=== PATIENT | female | born 1995 | race Hispanic/Latino ===

== ENCOUNTER 2017-08-04 16:28 | Emergency (ER) | payer MEDICAID, SELFPAY ==
[2017-08-04 18:23] LABS: #Basophils 0.1 thou/uL (0.0-0.2); #Eosinphils 0.1 thou/uL (0.0-0.7); #Lymphocytes 2.2 thou/uL (1.20-3.40); #Monocytes 0.6 thou/uL (0.11-0.59); %Basophils 0.8 % (0.0-1.0); %Eosinophils 0.7 % (0.0-10.0); %Lymphocytes 20.1 % (28.0-48.0); %Neutrophils 73.3 % (31.0-61.0); Hemoglobin 13.7 g/dL (12.0-16.0); Mean Corpuscular HGB CONC 34.2 g/dL (32.0-36.0); Mean Corpuscular Hemoglobin 29.8 pg (25.0-35.0); Mean Corpuscular Volume 87.3 fl (77.0-87.0); Mean Platelet Volume 8.8 fL (7.4-10.4); Platelet Count 258 thou/uL (130-400); RBC Distribution Width 12.7 % (11.5-14.5)
[2017-08-04 18:27] LABS: Bilirubin Negative (Negative); Blood, Urine Large (Negative); Clarity CLOUDY (Clear); Glucose, Urine (Dipstick) Negative (Negative); Leukocyte Small (Negative); Nitrite Negative (Negative); Protein, Urine (Dipstick) Trace mg/dL (Neg-Trace); Specific Gravity, Urine 1.017 (1.002-1.036); pH, Urine 7.5 (5.0-9.0)
[2017-08-04 18:29] LABS: Bacteria/HPF 1+ HPF (None Seen); Hyaline Casts/LPF 0-3 HYALINE CAST LPF (0-3 Hyaline)
[2017-08-04 18:35] LABS: Pregnancy Test - Urine (BHCG) POSITIVE (Negative); Pregu Control Background? CLEAR/WHITE (CLR/WHITE); Pregu Control Bar Appear? YES (CONTROL BAR); Specific Gravity 1.017 (1.002-1.036)
--- NOTE | 2017-08-04 20:42 | ULT ---
OBSTETRIC SONOGRAM 08/04/17 HISTORY: First trimester gestation. Pelvic pain and bleeding. FINDINGS: Single intrauterine gestation is visualized with crown-rump length correlating with 12 weeks, 6 days gestational age. Early gestational age limits anatomic detail. Amniotic fluid is within normal limits . A heterogeneous lobular echogenicity deep to the anterior amniotic sac is 6.1 x 5.7 cm greatest diame ters. No free fluid is apparent within the maternal pelvis. Right ovary is 3.6 cm in length and left 3.4 cm. Each has a normal appearance and demonstrates good c olor and spectral doppler flow. IMPRESSION: 1. Single viable intrauterine gestation with estimated gestational age based on today's sonogram of 12 weeks, 6 days. 2. Large anterior subchorionic hemorrhage. POS: [facility]
[2017-08-07 14:35] LABS: Chlamydia by PCR DETECTED (NotDetected); GC by PCR Not Detected (NotDetected)
== END 2017-08-04 20:27 | disposition home or self-care (01) ==
LOC: ERS 16:28
DX: O20.0 Threatened abortion (principal)
CPT/HCPCS: 36415; 76856; 81003; 81015; 81025; 84702; 85025; 86900; 86901; 87480; 87491; 87510; 87591; 87660

== ENCOUNTER 2019-09-22 09:24 | Outpatient (CLI) | payer MEDICAID ==
--- NOTE | 2019-09-22 11:13 | ULT ---
OB ULTRASOUND: HISTORY: Assess wellbeing and anatomy. FINDINGS: There is a single viable intrauterine . Gestational age by ultrasound is 24 weeks 5 days. BIOMETRY: BPD: 24 weeks 5 days HC: 24 weeks 2 days AC: 24 weeks 6 days FL: 24 weeks 6 days EFW: 721 grams, 24 weeks 4 days. PLACENTA: Anterior. PRESENTATION: Vertex. AMNIOTIC FLUID: Within normal range. JERO recorded at 13.0 cm. CERVIX LENGTH: 4.6 cm. HEART RATE: 136 b.p.m. ANATOMY: Intracranial contents, 4-chamber heart, stomach, kidneys, cord insertion, bladder, spine, lips, nose, extremities, and 3-vessel cord were all imaged. No abnormality identified. IMPRESSION: A 24 week 5 day gestation by ultrasound. No abnormality identified. POS: [facility]
== END 2019-09-22 09:25 | disposition home or self-care (01) ==
LOC: BICULT 09:24
PROVIDERS: ATTEND Family Medicine
DX: O09.92 Supervision of high risk pregnancy, unspecified, second trimester (principal); Z3A.24 24 weeks gestation of pregnancy
CPT/HCPCS: 76805

== ENCOUNTER 2019-12-22 07:56 | Outpatient (CLI) | payer OTHER ==
[2019-12-23 12:17] LABS: SARS-CoV-2 MS2 Positive; SARS-CoV-2 N Gene Negative; SARS-CoV-2 S Gene Negative; SARS-CoV-2 orf1ab Negative
== END 2019-12-22 07:57 | disposition home or self-care (01) ==
LOC: SCSLAB 07:56
PROVIDERS: ATTEND Family Medicine
DX: Z01.812 Encounter for preprocedural laboratory examination (principal); Z11.59 Encounter for screening for other viral diseases
CPT/HCPCS: 87635; U0003

== ENCOUNTER 2019-12-26 10:44 | Inpatient (IN) | payer OTHER ==
[2019-12-26] MEDS ORDERED: Ondansetron PF 4 MG/2 ML Vial IVP PRN ×3 (10:59→14:38)
[2019-12-26] MEDS ORDERED: Promethazine HCl 25 MG/ML VIAL IM PRN ×2 (10:59→12:24)
[2019-12-26] MEDS: Lactated Ringer's 1,000 ML IV SCH ×2 (11:10→12:00)
[2019-12-26] MEDS ORDERED: Oxytocin 10 UNITS/ML VIAL ONE ×2 (11:24→13:11)
[2019-12-26] MEDS ORDERED: MORPHINE 5 MG/10 ML PF VIAL ONE (11:25)
[2019-12-26] MEDS ORDERED: Fentanyl 100 MCG/2 ML VIAL ONE (11:25)
[2019-12-26 11:38] LABS: Hemoglobin 12.2 g/dL (12.0-16.0); Mean Corpuscular Hemoglobin 27.8 pg (27.0-31.0); Mean Corpuscular Volume 81.8 fL (78.0-98.0); Mean Platelet Volume 10.1 fL (7.4-10.4); Platelet Count 196 thou/uL (130-400); RBC Distribution Width 13.3 % (11.5-14.5); White Blood Cell (WBC) Count 6.9 thou/uL (4.8-10.8)
[2019-12-26 11:43] VITALS: BMI 33.7
[2019-12-26] MEDS: Bicitra 30 ML UDCUP ONE ×2 (12:04→17:06)
[2019-12-26] MEDS ORDERED: diphenhydrAMINE 50 MG/ML VIAL IVP PRN (12:24)
[2019-12-26] MEDS ORDERED: Naloxone HCl 0.4 mg/ml Vial IV PRN (12:24)
[2019-12-26] MEDS ORDERED: Naloxone HCl 0.4 mg/ml Vial IVP PRN ×2 (12:24)
[2019-12-26] MEDS ORDERED: Ketorolac Tromethamine 30 MG/ML VIAL IVP PRN (12:24)
[2019-12-26] MEDS ORDERED: Promethazine HCl 25 MG SUPP PR PRN (12:24)
[2019-12-26] MEDS ORDERED: Communication Order-Pharmacy FS SCH (12:30)
[2019-12-26] MEDS ORDERED: CEFAZOLIN 2 GM in Premix Bag 1 BAG IVPB SCH (12:30)
[2019-12-26] MEDS ORDERED: hydrALAZINE 20 MG/ML VIAL SLOW IVP PRN ×2 (12:30→14:38)
[2019-12-26] MEDS ORDERED: Famotidine/PF 20 mg/2ml Vial SLOW IVP SCH (12:30)
[2019-12-26] MEDS ORDERED: Methylergonovine 0.2 MG/ML VIAL ONE (12:34)
[2019-12-26 12:37] LABS: Syphilis Antibody Nonreactive (Nonreactive)
[2019-12-26 12:56] LABS: HBSAg Index 0.15 S/CO (0-0.99); Hep B Surf Ag Non-Reactive S/CO (NonReactive)
--- NOTE | 2019-12-26 14:13 | PDOC.OPDEL ---
OB Operative/Delivery Note - Additional Findings/Plan Compilations/Other Findings: Date of Procedure: 12/26/2019 Primary Surgeon: Dr. Frankie Toussaint [address] Operator Surgeon: Dr. Lb Obregon Procedure: Repeat low transverse caesarean section Preoperative Diagnosis: 1) Previous x 1 Postoperative Diagnosis: 1) Previous , delivered Anesthesia: spinal Indications: The patient is a 24 year old G2,P1 female at 40 weeks gestation who presents for a repeat scheduled . Procedure in Detail: After risks, benefits, and alternatives were explained to the patient, she gave informed consent. Pre-operative antibiotics included Cefazolin 2 gram IV. The patient was taken to the operating room and spinal anesthesia was initiated. She was placed in the supine position with a left tilt and prepped and draped in usual sterile fashion. A Pfannenstiel incision was made with a scalpel and carried down to the level of the fascia which was sharply nicked. The fascial cut was extended bilaterally with Jennings sissors. The inferior and superior edges of the cut fascial edges were elevated with Maribel clamps and the underlying rectus muscles were sharply and bluntly dissected free. The recti were divided digitally and retracted manually. The peritoneum was entered bluntly and retracted manually. Bladder blade was placed. A low transverse score was made with the scalpel and the uterus was entered in the midline with the scalpel. Clear fluid was seen. The hysterotomy was extended manually. The was noted to be vertex and was easily delivered by fundal pressure. Cord clamped and cut and grossly normal female was handed to waiting nurse. Cord blood was obtained. Placenta was manually extracted, found to be intact with 3 vessel cord and discarded. The uterus was externalized and the endometrium was curetted with a dry lap. The bladder blade was replaced and the uterus was closed with a running locking #1 monocryl suture followed by 2 short figure of 8 sutures with 0-vicryl for hemostasis. Uterine atony was encountered upon externalization, and 0.2 methergine IM was administered, which resolved the atony. Seprafilm was placed along the incision and anterior uterine fundus. The abdomen was irrigated with saline and suctioned free of clots. The uterus was internalized and the hysterotomy was again noted to be hemostatic. The fascia was closed with a running non-locking 0-PDS suture. The peritoneum was closed with a running suture of 3-0 vicryl. 3 interrupted sutures of 3-0 Vicryl were used to close the subdermal layer. The skin was approximated with abelardo and a pressure dressing was placed. All counts were correct. The patient tolerated the procedure well and was taken to the recovery room in stable condition. Quantified Blood Loss: 510 ml Complications: None Specimens: Cord blood sent to lab for blood type Findings: Grossly normal female infant with Apgars of 8 and 9. Grossly normal placenta with 3 vessel cord discarded. Drains: Odonnell to gravity draining clear urine
[2019-12-26] MEDS ORDERED: Meperidine HCl/PF 25 MG/ML VIAL IM PRN (14:38)
[2019-12-26] MEDS ORDERED: Bisacodyl 10 MG SUPP PR PRN (14:38)
[2019-12-26] MEDS ORDERED: Simethicone Chewable 80 MG TAB PO PRN (14:38)
[2019-12-26] MEDS ORDERED: NS / Oxytocin 40 units/1000ml 1,000 ML IV SCH (14:38)
[2019-12-26] MEDS ORDERED: diphenhydrAMINE 25 MG CAP PO PRN (14:38)
[2019-12-26] MEDS ORDERED: Lanolin Ointment 7 GM TUBE TOP PRN (14:38)
[2019-12-26] MEDS ORDERED: Ondansetron PF 4 MG/2 ML Vial ONE (14:46)
[2019-12-26] MEDS: Ketorolac Tromethamine 30 MG/ML VIAL IVP SCH (18:03)
[2019-12-26] MEDS: Ferrous Sulfate 325 MG TAB PO SCH (22:30)
[2019-12-26] MEDS: Docusate Calcium (SURFAK) 240 MG CAP PO SCH (23:10)
[2019-12-27] MEDS: Ketorolac Tromethamine 30 MG/ML VIAL IVP SCH ×2 (00:03→06:12)
[2019-12-27] MEDS ORDERED: HYDROcodone/Acetaminophen 5/325 mg Tablet PO PRN ×2 (00:30)
[2019-12-27] MEDS ORDERED: Sodium Chloride 0.9% 10 ML ONE (05:42)
[2019-12-27 06:26] LABS: Hemoglobin 10.7 g/dL (12.0-16.0); Mean Corpuscular HGB CONC 33.8 g/dL (32.0-36.0); Mean Corpuscular Volume 82.9 fL (78.0-98.0); Mean Platelet Volume 9.8 fL (7.4-10.4); Platelet Count 168 thou/uL (130-400); RBC Distribution Width 13.3 % (11.5-14.5); Red Blood Cell (RBC) Count 3.84 mill/uL (4.20-5.40); White Blood Cell (WBC) Count 6.4 thou/uL (4.8-10.8)
[2019-12-27] MEDS: Prenatal Vitamin 1 TAB PO SCH (08:05)
[2019-12-27] MEDS: Docusate Calcium (SURFAK) 240 MG CAP PO SCH ×2 (08:05→22:40)
[2019-12-27] MEDS: Ferrous Sulfate 325 MG TAB PO SCH ×2 (08:06→22:40)
[2019-12-27] MEDS ORDERED: Adacel (T-DAP) 0.5 ML SYRINGE IM ONE (09:00)
[2019-12-27] MEDS: Ibuprofen 800 MG TAB PO SCH ×2 (16:06→22:40)
[2019-12-28] MEDS: Ibuprofen 800 MG TAB PO SCH (06:30)
[2019-12-28] MEDS: Prenatal Vitamin 1 TAB PO SCH (08:49)
[2019-12-28] MEDS: Docusate Calcium (SURFAK) 240 MG CAP PO SCH (08:49)
[2019-12-28] MEDS: Ferrous Sulfate 325 MG TAB PO SCH (08:49)
[2019-12-28 12:05] VITALS: BP 122/78; TEMP 98.2
== END 2019-12-28 16:00 | disposition home or self-care (01) | DRG 788 ==
LOC: L&D 10:44 → 3SW 16:35
PROVIDERS: ADMIT Family Medicine; ATTEND Family Medicine
PROC: 10D00Z1 Extraction of Products of Conception, Low, Open Approach (ICD-10-PCS; principal; 2019-12-26)
PROC: 3E0P05Z Introduction of Adhesion Barrier into Female Reproductive, Open Approach (ICD-10-PCS; 2019-12-26)
DX: O34.211 Maternal care for low transverse scar from previous cesarean delivery (principal); Z3A.40 40 weeks gestation of pregnancy; Z37.0 Single live birth
CPT/HCPCS: 36415; 51702; 85027; 86780; 86850; 86900; 86901; 87340; J0690; J1885; J2210; J2274; J2405; J2590; J3010

== ENCOUNTER 2023-02-19 00:58 | Emergency (ER) | payer OTHER ==
[2023-02-19] MEDS ORDERED: Dexameth. Sod Phosp. 10 MG/ML (CHEMO USE ONLY) ONE (01:14)
[2023-02-19] MEDS ORDERED: Ketorolac Tromethamine 30 MG/ML VIAL ONE (01:14)
[2023-02-19] MEDS ORDERED: Ondansetron PF 4 MG/2 ML Vial ONE (01:15)
[2023-02-19] MEDS ORDERED: diphenhydrAMINE 50 MG/ML VIAL ONE (01:18)
[2023-02-19] MEDS ORDERED: Famotidine/PF 20 mg/2ml Vial ONE (01:19)
[2023-02-19 01:31] LABS: #Eosinphils 0.1 thou/uL (0.0-0.7); #Monocytes 0.3 thou/uL (0.11-0.59); #Neutrophils 6.2 thou/uL (1.40-6.50); %Basophils 0.2 % (0.0-1.0); %Eosinophils 0.7 % (0.0-10.0); %Lymphocytes 48.3 % (21.0-51.0); %Monocytes 2.3 % (0.0-10.0); Hematocrit 48.9 % (36.0-47.0); Hemoglobin 17.1 g/dL (12.0-16.0); Mean Corpuscular Hemoglobin 28.5 pg (27.0-31.0); Mean Corpuscular Volume 81.5 fl (78.0-98.0); Mean Platelet Volume 11.2 fL (7.4-10.4); Platelet Count 346 10x3/uL (130-400); RBC Distribution Width 13.1 % (11.5-14.5); White Blood Cell (WBC) Count 12.8 10x3/uL (4.8-10.8)
[2023-02-19 01:57] LABS: Anion Gap 16 mmol/L (10-20); BUN (Urea Nitrogen) 11 mg/dL (7.0-18.7); Calc. Creatinine Clearance 0 mL/min (70-130); Calcium 9.1 mg/dL (7.8-10.44); Carbon Dioxide 22 mmol/L (22-29); Chloride 101 mmol/L (98-107); Estimated GFR 94; Glucose 345 mg/dL (70-105); Sodium 136 mmol/L (136-145)
[2023-02-19] MEDS ORDERED: Potassium Chloride 20 MEQ TAB ONE (02:25)
== END 2023-02-19 05:20 | disposition home or self-care (01) ==
LOC: ERS 00:58
DX: T78.2XXA Anaphylactic shock, unspecified, initial encounter (principal)
CPT/HCPCS: 36415; 36416; 71045; 80048; 83605; 85025; 96365; 96375; J1100; J1200; J1885; J2405; S0028